=== PATIENT | female | born 2000 | race Caucasian/White ===

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

== ENCOUNTER 2018-12-14 12:14 | Emergency (ER) | payer MEDICAID ==
[2018-12-14] MEDS ORDERED: NS 1,000 ML IV ONE (12:55)
--- NOTE | 2018-12-14 13:02 | EDPHY ---
HPI/HX/ROS/PE/MDM Narrative: CHIEF COMPLAINT: Elevated blood sugar HPI: This patient is an obese 18-year-old female with history of aplastic anemia (in remission) who was diagnosed with diabetes mellitus type 2 yesterday. She was evaluated at [facility] for complaints of fatigue and intermittent headaches, ongoing for quite some time. Her BGL was elevated at that visit around 250 and the patient was prescribed 500mg PO Metformin and instructed to check her sugars twice daily. She will follow up with her PCP in one week. Yesterday evening before bed, she noted her BGL was around 400. Today, after having popcorn and coca-cola at the movies, her BGL was around 442, and she and her mother became concerned. She continues to feel fatigued, but otherwise has no complaints. She denies fever, vomiting, diarrhea, or urinary complaints. REVIEW OF SYSTEMS: A comprehensive 10 system review of systems is otherwise negative aside from elements mentioned in the history of present illness and medical decision making. PMH: Diabetes mellitus type 2. Aplastic anemia. Depression. SOCIAL HISTORY: Lives in [place]. Mother at bedside. PHYSICAL EXAM: General: Overweight. Patient is alert, in no acute distress. ENT:Eyes are normal to inspection. ENT inspection normal. Neck: Normal inspection. Full range of motion. Respiratory:No respiratory distress. Breath sounds normal bilaterally. Cardiovascular: Regular rate and rhythm. Strong peripheral pulses. Normal cap refill. Abdomen:The abdomen is nontender to palpation. There are no peritoneal signs. There are normal bowel sounds. Back: Normal to inspection. No tenderness to palpation. Skin: Normal color. No rash. Warm and dry. Extremities: Normal appearance. Full range of motion. Neuro: Oriented x3. Normal motor function. Normal sensory function. ED Course: 18-year-old female presents with concerns for elevated BGL of 442 after being diagnosed with type 2 diabetes mellitus yesterday. Notably, she had consumed half a bottle of coca-cola and popcorn before checking her sugar level. She complains primarily of fatigue. Plan for labs including CBC, chemistries, BHCG, POC BGL, UA, BHB. 12:58 POC BGL 392. Reviewed laboratory studies. No evidence of acute renal failure. CO2 is mildly below normal limits at 20. BGL 425. BHCG is negative. CBC is unremarkable. Plan to administer insulin, 6 units, per standard ED protocol. 15:30 Reassessed. Patient continues to feel well. Repeat BGL after fluids and insulin is 288. Plan to discharge patient home in good condition. She will follow up with her PCP as scheduled. Discussed nutrition guidelines for new- onset type 2 diabetes. Return precautions discussed. The patient and her mother are comfortable with this plan. MDM: This patient presents with hyperglycemia with no signs of DKA. Her blood sugar was lowered with IV fluids and a dose of insulin. There are no signs of infection. I suspect her presentation is secondary to only recent initiation of metformin as well as continued dietary non-compliance. We discussed strict return precautions. I think the patient is safe for discharge home and outpatient close follow-up. - Data Points Laboratory Results: Laboratory Results 12/14/18 12:55 12/14/18 12:55 12/14/18 12/14/18 12/14/18 15:31 14:41 14:23 WBC RBC Hgb Hct MCV MCH MCHC RDW Plt Count MPV Neut % (Auto) Lymph % (Auto) [place] % (Auto) Eos % (Auto) Baso % (Auto) Nucleat RBC Rel Count Absolute Neuts (auto) Absolute Lymphs (auto) Absolute Monos (auto) Absolute Eos (auto) Absolute Basos (auto) Absolute Nucleated RBC Immature Gran % Immature Gran # Sodium Potassium Chloride Carbon Dioxide Anion Gap BUN Creatinine Estimated GFR Glucose POC Glucose 288 mg/dL H mg/dL 312 mg/dL H mg/dL (70-100) (70-100) Calcium Beta-Hydroxybutyrate Beta HCG, Qual Urine Color PALE YELLOW Urine Appearance CLEAR Urine pH 6.0 (5.0-7.5) Ur Specific [place] 1.027 (1.002-1.030) Urine Protein NEGATIVE (NEGATIVE) Urine Ketones NEGATIVE (NEGATIVE) Urine Blood NEGATIVE (NEGATIVE) Urine Nitrate NEGATIVE (NEGATIVE) Urine Bilirubin NEGATIVE (NEGATIVE) Urine Urobilinogen NEGATIVE EU EU (0.2-1.0) Ur Leukocyte Esterase NEGATIVE (NEGATIVE) Urine RBC NONE SEEN /hpf /hpf (0-3) Urine WBC 1-3 /hpf /hpf (0-3) Ur Epithelial Cells TRACE /lpf /lpf (NONE-1+) Urine Glucose 3+ H (NEGATIVE) 12/14/18 12/14/18 12/14/18 12:57 12:55 12:55 WBC RBC Hgb Hct MCV MCH MCHC RDW Plt Count MPV Neut % (Auto) Lymph % (Auto) [place] % (Auto) Eos % (Auto) Baso % (Auto) Nucleat RBC Rel Count Absolute Neuts (auto) Absolute Lymphs (auto) Absolute Monos (auto) Absolute Eos (auto) Absolute Basos (auto) Absolute Nucleated RBC Immature Gran % Immature Gran # Sodium 134 mEq/L L mEq/L (135-145) Potassium 4.0 mEq/L mEq/L (3.5-5.2) Chloride 100 mEq/L mEq/L (97-110) Carbon Dioxide 20 mEq/l L mEq/l (22-31) Anion Gap 14 mEq/L mEq/L (6-14) BUN 6 mg/dL L mg/dL (7-23) Creatinine 0.5 mg/dL L mg/dL (0.6-1.0) Estimated GFR > 60 Glucose 425 mg/dL H mg/dL (70-100) POC Glucose 392 mg/dL H mg/dL (70-100) Calcium 9.2 mg/dL mg/dL (8.5-10.4) Beta-Hydroxybutyrate 0.09 mmol/L mmol/L (0.02-0.27) Beta HCG, Qual NEGATIVE Urine Color Urine Appearance Urine pH Ur Specific [place] Urine Protein Urine Ketones Urine Blood Urine Nitrate Urine Bilirubin Urine Urobilinogen Ur Leukocyte Esterase Urine RBC Urine WBC Ur Epithelial Cells Urine Glucose 12/14/18 12:55 WBC 8.52 10^3/uL 10^3/uL (3.80-9.50) RBC 4.75 10^6/uL 10^6/uL (4.18-5.33) Hgb 14.9 g/dL g/dL (12.6-16.3) Hct 44.0 % % (38.0-47.0) MCV 92.6 fL fL (81.5-99.8) MCH 31.4 pg pg (27.9-34.1) MCHC 33.9 g/dL g/dL (32.4-36.7) RDW 12.5 % % (11.5-15.2) Plt Count 244 10^3/uL 10^3/uL (150-400) MPV 10.1 fL fL (8.7-11.7) Neut % (Auto) 64.1 % % (39.3-74.2) Lymph % (Auto) 27.3 % % (15.0-45.0) [place] % (Auto) 6.0 % % (4.5-13.0) Eos % (Auto) 2.2 % % (0.6-7.6) Baso % (Auto) 0.2 % L % (0.3-1.7) Nucleat RBC Rel Count 0.0 % % (0.0-0.2) Absolute Neuts (auto) 5.45 10^3/uL 10^3/uL (1.70-6.50) Absolute Lymphs (auto) 2.33 10^3/uL 10^3/uL (1.00-3.00) Absolute Monos (auto) 0.51 10^3/uL 10^3/uL (0.30-0.80) Absolute Eos (auto) 0.19 10^3/uL 10^3/uL (0.03-0.40) Absolute Basos (auto) 0.02 10^3/uL 10^3/uL (0.02-0.10) Absolute Nucleated RBC 0.00 10^3/uL 10^3/uL (0-0.01) Immature Gran % 0.2 % % (0.0-1.1) Immature Gran # 0.02 10^3/uL 10^3/uL (0.00-0.10) Sodium Potassium Chloride Carbon Dioxide Anion Gap BUN Creatinine Estimated GFR Glucose POC Glucose Calcium Beta-Hydroxybutyrate Beta HCG, Qual Urine Color Urine Appearance Urine pH Ur Specific [place] Urine Protein Urine Ketones Urine Blood Urine Nitrate Urine Bilirubin Urine Urobilinogen Ur Leukocyte Esterase Urine RBC Urine WBC Ur Epithelial Cells Urine Glucose Medications Given: Discontinued Medications Sodium Chloride (Ns) 1,000 mls @ 0 mls/hr IV EDNOW ONE; Wide Open PRN Reason: Protocol Stop: 12/14/18 12:56 Last Admin: 12/14/18 13:26 Dose: 1,000 mls Insulin Human Regular (Humulin R) 6 unit IVP EDNOW ONE Stop: 12/14/18 14:48 Last Admin: 12/14/18 15:01 Dose: 6 unit Ondansetron HCl (Zofran) 4 mg IVP EDNOW ONE Stop: 12/14/18 13:04 Last Admin: 12/14/18 13:27 Dose: Not Given Point of Care Test Results: Chemistry 12/14/18 12/14/18 12/14/18 15:31 14:41 12:57 POC Glucose 288 mg/dL H mg/dL 312 mg/dL H mg/dL 392 mg/dL H mg/dL (70-100) (70-100) (70-100) General Time Seen by Provider: 12/14/18 12:54 Initial Vital Signs: Initial Vital Signs Temperature (C) 36.8 C 12/14/18 12:17 Heart Rate 82 12/14/18 12:17 Respiratory Rate 18 12/14/18 12:17 Blood Pressure 124/79 H 12/14/18 12:17 O2 Sat (%) 94 12/14/18 12:17 O2 Delivery Mode Room Air Allergies/Adverse Reactions: No Known Allergies Allergy (Verified 12/14/18 12:21) Home Medications: Medication Instructions Recorded Zoloft 100mg (RX) 10/05/14 Propranolol Sr 04/26/17 Sertraline HCl 12/14/18 Departure - Departure Disposition: Home, Routine, Self-Care Clinical Impression: Diabetes Condition: Good Instructions: Type 2 Diabetes in Adults: New Diagnosis (ED), Diabetes and Nutrition (ED) Additional Instructions: Follow up with your primary care provider as scheduled. Please see the attached instructions regarding recommended nutritional guidelines for type 2 diabetes. Return to the emergency department for fever, persistent blood sugar above 400, nausea, vomiting, shortness of breath, or other worsening of condition. Referrals: [facility] [Clinic] - As per Instructions Report Scribed for: Mna Woodward Report Scribed by: Tiff Nunez Date of Report: 12/14/18 Time of Report: 13:02 Physician Review and Approval Statement: Portions of this note were transcribed by an ED scribe. I personally performed the history, physical exam, and medical decision making; and confirm the accuracy of the information in the transcribed note.
[2018-12-14] MEDS ORDERED: ONDANSETRON 4 MG/2 ML VIAL IVP ONE (13:03)
[2018-12-14 13:13] LABS: PLATELET COUNT 244 10^3/uL (150-400)
[2018-12-14] MEDS ORDERED: INSULIN REGULAR HUMAN 100 UNIT/ML UNIT IVP ONE (14:47)
[2018-12-14 15:07] VITALS: BP 113/74
== END 2018-12-14 15:50 | disposition home or self-care (01) ==
DX: E11.65 Type 2 diabetes mellitus with hyperglycemia (principal); E86.9 Volume depletion, unspecified
CPT/HCPCS: 96374; J1815